=== PATIENT | male | born 1990 | race Caucasian/White ===

== ENCOUNTER 2021-01-16 16:38 | Emergency (ER) | payer BC ==
[~2021-01-16] VITALS: Ht 185.4 cm; Wt 113.6 kg
[2021-01-16 17:00] VITALS: Ht 185.4 cm; Wt 113.6 kg
[2021-01-16] MEDS ORDERED: XANAX1 MG PO (17:08)
[2021-01-16] MEDS ORDERED: ADDERALL XR 2020 MG PO (17:08)
[2021-01-16 18:06] LABS: EOSINOPHILS 0.6 % (0-7); HEMATOCRIT 43.3 % (42.0-54.0); LYMPHOCYTES 22.2 % (15-50); MCH 31.3 pg (26.0-34.0); MCHC 34.8 g/dL (31.0-37.0); MCV 90.1 fL (80.0-100.0); MEAN PLATELET VOLUME 9.6 fL (7.4-10.4); MONOCYTES 5.2 % (2-11); PLATELET COUNT 151 10x3/uL (130-400); RDW 12.9 % (11.5-14.5); WBC 12.3 10x3/uL (4.8-10.8)
[2021-01-16 18:14] LABS: CALC OSMOLALITY 280 mosm/kg (275-300); CALCIUM 8.7 mg/dL (8.5-10.1); CARBON DIOXIDE 26.1 mmol/L (21.0-32.0); CHLORIDE - SERUM 105 mmol/L (98-107); CREATININE - SERUM 0.8 mg/dL (0.6-1.3); GLUCOSE 84 mg/dL (74-106); POTASSIUM - SERUM 3.9 mmol/L (3.5-5.1); SODIUM 142 mmol/L (136-145); UREA NITROGEN 9 mg/dL (7-18); eGFR NON AFRICAN AMERICAN > 90 mL/min (90-120)
[2021-01-16 18:20] LABS: ALBUMIN 3.8 g/dL (3.4-5.0); ALKALINE PHOSPHATASE 65 U/L (30-120); ALT (SGPT) 24 U/L (10-68); BILIRUBIN - TOTAL 0.25 mg/dL (0.2-1.3); MAGNESIUM - SERUM 1.9 mg/dL (1.8-2.4); PROTEIN - SERUM 6.9 g/dL (6.4-8.2)
[2021-01-16 19:13] LABS: UDS - AMPHET NEGATIVE QUAL (NEGATIVE); UDS - BARB NEGATIVE QUAL (NEGATIVE); UDS - BENZO NEGATIVE QUAL (NEGATIVE); UDS - COCAINE NEGATIVE QUAL (NEGATIVE); UDS - OPIATE NEGATIVE QUAL (NEGATIVE); UDS - PCP NEGATIVE QUAL (NEGATIVE); UDS - THC POSITIVE QUAL (NEGATIVE)
[2021-01-16 19:18] LABS: BILIRUBIN NEGATIVE (NEGATIVE); KETONE NEGATIVE (NEGATIVE); NITRITE NEGATIVE (NEGATIVE); UROBILINOGEN NORMAL mg/dL (< 2)
--- NOTE | 2021-01-16 19:41 | NUR ---
PRESENTED TO THE ED AND ATTEMPTED TO PERFORM SUICIDE RISK ASSESSMENT. PT DIFFICULT TO AROUSE. WAS NOT AWARE OF HIS SURROUNDINGS NOR THE REASON HE IS HERE. EMS REPORTED PATIENT HAD TAKEN AN OD OF XANAX ALONG WITH DRINKING VODKA AND WINE. WILL PLACE ON SUICIDE WATCH DUE TO REPORTS OF SA/GESTURE PER [facility] MESSER. WILL REEVALUATE ONCE PATIENT IS MORE LUCID.
[2021-01-16 23:23] LABS: SARS-CoV-2 ANTIGEN NEGATIVE- SARS-COV-2 (NEGATIVE)
--- NOTE | 2021-01-17 01:30 | NUR ---
ASSESSMENT COMPLETED. PATIENT WAS GOING TO LEAVE HOSPITAL AMA AT WHICH TIME HE TOOK A BOTTLE OF PILLS FROM HIS PERSONAL BELONGINGS AND POURED PILLS IN HIS HAND AND PILLS WENT ON THE FLOOR AND PATIENT RELATED HE TOOK ON ADDERALL. DR STAFFORD NOTIFIED AND SITTER ORDERED SITTER AT BEDSIDE. NOTIFIED CHARGE NURSE AND ATTENDING IN REGARDS TO ASSESSMENT FINDINGS. RESOURCES GIVEN TO PT AND SAFETY PLAN INITIATED.
[2021-01-17 09:25] VITALS: BP 122/70
== END 2021-01-17 09:25 | disposition other institution (70) ==
LOC: D.ER 16:38
PROVIDERS: Emergency Medicine; Student in an Organized Health Care Education/Training Program
DX: R45.851 Suicidal ideations (principal); F13.10 Sedative, hypnotic or anxiolytic abuse, uncomplicated; F10.129 Alcohol abuse with intoxication, unspecified; Y90.9 Presence of alcohol in blood, level not specified; Z53.29 Procedure and treatment not carried out because of patient's decision for other reasons